=== PATIENT | female | born 2000 | race Two or more races ===

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

== ENCOUNTER 2021-01-30 21:33 | Emergency (ER) | payer MEDICAID, OTHER ==
[~2021-01-30] VITALS: Ht 160 cm; Wt 57.2 kg
[~2021-01-30 21:33] MED LIST: D-ME473S63 PO
[2021-01-30 22:51] LABS: *URINE HCG, QUAL NEGATIVE (NEGATIVE)
== END 2021-01-30 22:44 | disposition home or self-care (01) ==
LOC: ER 21:34
DX: J06.9 Acute upper respiratory infection, unspecified (principal); Z20.822 Contact with and (suspected) exposure to COVID-19
CPT/HCPCS: 84703; A4663

== ENCOUNTER 2022-05-28 20:25 | Emergency (ER) | payer MEDICAID | END 2022-05-28 22:06 | disposition left against medical advice (07) | LOC: ER 20:25 | DX: Z53.21 Procedure and treatment not carried out due to patient leaving prior to being seen by health care provider (principal) ==